=== PATIENT | female | born 1955 | race Caucasian/White ===

== ENCOUNTER 2017-10-21 22:56 | Emergency (ER) | payer OTHER ==
[~2017-10-21] VITALS: Ht 167.6 cm; Wt 85.5 kg
[~2017-10-21 22:56] MED LIST: Aspirin Chewable PO; Benadryl PO; CILOXAN 0.1 APPLICAT; Cleocin PO; Colace PO; DEPAKENE250 MG PO; LEVOTHYROXINE50 MCG PO; LEVOTHYROXINE75 MCG; OLANZAPINE20 MG PO; Oscal 500 w/Vitamin PO; PREMARIN0.3 MG; PREMARIN0.3 MG PO; Tylenol Regular Stre PO; Zyvox PO
[2017-10-22 04:45] VITALS: BP 135/77
== END 2017-10-22 04:45 | disposition home or self-care (01) ==
LOC: EME 22:56
PROC: 0HQ1XZZ Repair Face Skin, External Approach (ICD-10-PCS; principal; 2017-10-21)
DX: S01.81XA Laceration without foreign body of other part of head, initial encounter (principal); W01.190A Fall on same level from slipping, tripping and stumbling with subsequent striking against furniture, initial encounter; F73 Profound intellectual disabilities; R56.9 Unspecified convulsions; F41.9 Anxiety disorder, unspecified; Z79.82 Long term (current) use of aspirin
CPT/HCPCS: 99281; 99284; J2250